=== PATIENT | male | born 1980 | race Caucasian/White ===

== ENCOUNTER 2021-02-06 14:59 | Emergency (ER) | payer OTHER ==
[~2021-02-06] VITALS: Ht 180.3 cm; Wt 68.9 kg
--- NOTE | 2021-02-06 15:10 | NUR ---
TO ER BED 14, [id number], FOUND PASSED OUT INSIDE A BATHROOM. ADMITS TO SMOKING UNKNOWN SUBSTANCE, AAOX3, BREATHING EVEN AND NON LABORED, AWAITING MD ORDERS
[2021-02-06 15:28] VITALS: BP 130/97
[2021-02-06] MEDS ORDERED: ONDANSETRON HCL/PF 4 MG/2 ML VIAL ONE (15:41)
--- NOTE | 2021-02-06 15:55 | NUR ---
THE PATIENT IS ALERT AND ORIENTED X3. DENIES PAIN. IN ROOM AIR AND DENIES SOB. RESPIRATION REGULAR AND UNLABORED. DENIES N/V. WILL CONTINUE TO MONITOR THE PATIENT.
[2021-02-06] MEDS ORDERED: ONDANSETRON HCL/PF - ER 4 MG/2 ML VIAL IV ONE (16:00)
--- NOTE | 2021-02-06 16:15 | NUR ---
Patient eloped from facility. Dr Renee notified.
== END 2021-02-06 16:45 | disposition left against medical advice (07) ==
LOC: ER 15:06
DX: T40.2X1A Poisoning by other opioids, accidental (unintentional), initial encounter (principal); R00.0 Tachycardia, unspecified; Y92.89 Other specified places as the place of occurrence of the external cause
CPT/HCPCS: 71045; 93005; 99283; J2405 ×2

== ENCOUNTER 2021-05-01 02:26 | Emergency (ER) | payer OTHER ==
[~2021-05-01] VITALS: Ht 177.8 cm; Wt 63.5 kg
--- NOTE | 2021-05-01 04:48 | NUR ---
Patient discharged to home in stable condition. Written and verbal after care instructions given. Patient verbalizes understanding of instruction.
[2021-05-01 04:49] VITALS: BP 141/60
== END 2021-05-01 04:51 | disposition home or self-care (01) ==
LOC: ER 02:26
DX: Z20.6 Contact with and (suspected) exposure to human immunodeficiency virus [HIV] (principal)
CPT/HCPCS: 36415; 87806